=== PATIENT | female | born 1985 | race Caucasian/White ===

== ENCOUNTER 2019-06-02 05:13 | Inpatient (IN) | payer OTHER ==
[~2019-06-02] VITALS: Ht 162.6 cm; Wt 67.0 kg
[2019-06-02 06:04] VITALS: Ht 162.6 cm; Wt 67.0 kg
[2019-06-02 06:18] VITALS: BP 109/59; PULSE 64; RESP 18
[2019-06-02 07:18] VITALS: BP 112/65; PULSE 67; RESP 18
[2019-06-02] MEDS ORDERED: NACL 0.9% 3 ML SYG IV SCH (08:00)
[2019-06-02] MEDS ORDERED: ALBUTEROL/IPRATROPIUM (NEB) 3 ML AMP HHN PRN (08:00)
[2019-06-02] MEDS ORDERED: ACETAMINOPHEN 325 MG TAB PO PRN (08:00)
[2019-06-02] MEDS ORDERED: ONDANSETRON 4 MG INJ IV PRN (08:00)
[2019-06-02] MEDS ORDERED: HEPARIN 5,000 UNIT/1 ML VIAL SC SCH (09:00)
--- NOTE | 2019-06-02 10:52 | HP ---
Date/Time of Note Date/Time of Note DATE: 06/02/19 TIME: 10:42 Assessment/Plan VTE Prophylaxis SCD applied (from Nsg): No SCD contraindicated: other Pharmacological prophylaxis: NA/contraindicated Pharm contraindication: low risk/ambulating Lines/Catheters IV Catheter Type (from Nrs): Saline Lock Urinary Cath still in place: No Assessment/Plan Hospital Course SUBJECTIVE: Lying in bed, having breakfast. Feeling anxious and worried. Reports chest tightness. OBJECTIVE: Vital signs-see below PHYSICAL EXAM: Constitutional: Adequately built, having anxiety/panic attacks HEENT: Head atraumatic and normocephalic. Eyes: Extraocular muscles intact. Anicteric sclerae. Pupils equal bilaterally, reactive to light. NECK: Supple without lymph node. CHEST: Clear and good breath sounds equally. No wheezing. No rhonchi. HEART: S1, S2. Regular rate and rhythm. ABDOMEN: Soft/non tender with no rebound tenderness. Bowel sounds were present. EXTREMITIES: No cyanosis, clubbing or edema. NEUROLOGIC: Alert and oriented x3. No focal deficit. No sensory deficit. PSYCHOSOCIAL: anxious/panic/depressed ... INTEGUMENTARY: No open wounds. ASSESSMENT AND PLAN: 34 yo under bereavement w/sudden demise of her mom2 days ago,here tx from [facility] for dizziness followed by fainting/blackouts,inability to movex4 ext,difficulty speakingx 24hrs onset... -symptoms resolved completely -Rule out TIA versus somato- psychogenic symptoms -CTB/CTA (-) per osh ER report-requested actual imaging study reports -Brain MRI -ASA prophylaxis -PT eval Anxiety/panic attack w/possible acute depression -pt's mom 2days ago..Her father undergoing f/u post cabg...Pt is a single mom.. -psych consult -prn ativan -supportive care -SW consult Possible neuropathy -vit d/b12 levels -if no improvement, consider low dose gabapentin DVT prophylaxis: SCDs Rest of the management depend on clinical course. Approximately 60 m spent on this history and physical. Patient was seen in collaboration with Dr. Link. Result Diagram: 06/02/19 0800 06/02/19 0800 Results 24hrs Laboratory Tests Test 06/02/19 07:59 06/02/19 08:00 Creatine Kinase 71 Creatine Kinase Index 0.6 Creatinine Kinase MB (Mass) 0.43 Troponin I < 0.012 White Blood Count 3.9 L Red Blood Count 4.29 Hemoglobin 12.8 Hematocrit 38.1 Mean Corpuscular Volume 88.8 Mean Corpuscular Hemoglobin 29.8 Mean Corpuscular Hemoglobin Concent 33.6 Red Cell Distribution Width 13.5 Platelet Count 217 Mean Platelet Volume 10.6 H Immature Granulocytes % 0.000 L Neutrophils % 39.1 Lymphocytes % 47.3 Monocytes % 11.5 H Eosinophils % 1.8 Basophils % 0.3 Nucleated Red Blood Cells % 0.0 Immature Granulocytes # 0.000 Neutrophils # 1.5 L Lymphocytes # 1.9 Monocytes # 0.5 Eosinophils # 0.1 Basophils # 0.0 Nucleated Red Blood Cells # 0.0 Sodium Level 141 Potassium Level 4.0 Chloride Level 108 Carbon Dioxide Level 24 Anion Gap 9 Blood Urea Nitrogen 10 Creatinine 0.76 Est Glomerular Filtrat Rate mL/min > 60 Glucose Level 99 Hemoglobin A1c 5.0 Calcium Level 9.1 Magnesium Level 2.1 Total Bilirubin 0.3 Direct Bilirubin 0.00 Indirect Bilirubin 0.3 Aspartate Amino Transf (AST/SGOT) 17 Alanine Aminotransferase (ALT/SGPT) 17 Alkaline Phosphatase 51 Total Protein 7.2 Albumin 3.9 Globulin 3.30 H Albumin/Globulin Ratio 1.18 Triglycerides Level 59 Cholesterol Level 156 LDL Cholesterol, Calculated 110 HDL Cholesterol 34 Cholesterol/HDL Ratio 4.5 Thyroid Stimulating Hormone (TSH) 1.710 HPI/ROS Admit Date/Time Admit Date/Time Jun 02, 2019 at 05:45 Hx of Present Illness Is a 34-year-old female who is also a single mom with no significant past medical history, initially presented to [facility] with dizziness followed by fainting w/blackout, inability to move her extremities, facial numbness while she was dining with her friends yesterday evening. Unfortunately, patient is undergoing bereavementsecondary to her mother's sudden onset of demise which happened 2 days ago. Apparently, she has been undergoing tremendous stress and has been having frequent spells and blackouts with numbness lately. In the emergency room at outside hospital, patient was still noted with speech disturbances and bilateral upper and lower extremity weakness. Patient was evaluated by telemetry neurologist at outside facility and no TPA was recommended as her symptoms were more likely psychogenic in origin secondary to stress. Patient's brain CT and CTA head and neck was normal per reports obtained from outside hospital. Her labs also unremarkable at OSH. At my encounter with the patient, she appears extremely anxious and worried due to her mom's demise. She is also worried about arrangements. She is now able to move her extremities. Her speech is back to normal. She did not have any vision changes at this time. However, she continues to report chest tightness, bilateral numbness. No further blackouts. She denied fever, chills, diarrhea, nausea, vomiting, abdominal pain, palpitation, diaphoresis, speech difficulties, vision changes, or other constitutional symptoms. ROS A 12 point review of system was assessed and is negative other than what is mentioned in HPI. PMH/Family/Social Past Medical History See HPI Medications Current Medications IV Flush (NS 3 ml) 3 ml PER PROTOCOL IV ; Start 06/02/19 at 08:00 Ondansetron HCl (Zofran Inj) 4 mg Q6H PRN IV NAUSEA/VOMITING; Start 06/02/19 at 08:00 Acetaminophen (Tylenol Tab) 650 mg Q6H PRN PO .PAIN 1-3 OR TEMP; Start 06/02/19 at 08:00 Heparin Sodium (Porcine) (Heparin (5000 Units/1ml)) 5,000 unit Q12 SC Last administered on 06/02/19at 09:40; Admin Dose 5,000 UNIT; Start 06/02/19 at 09:00 Albuterol/ Ipratropium (Duoneb) 3 ml Q2H RESP THERAPY PRN HHN SHORTNESS OF BREATH; Start 06/02/19 at 08:00 Coded Allergies: No Known Allergy (Unverified , 06/02/19) Past Surgical History None Social History Denied history of alcohol, smoking or illicit drug use. Smoking Status: Never smoker Exam/Review of Systems Vital Signs Vitals Vital Signs Date Temp Pulse Resp B/P (MAP) Pulse Ox O2 O2 Flow FiO2 Time Delivery Rate 06/02/19 97.5 67 18 112/65 98 Room Air 07:18 (81) CHAU DAVIS NP Jun 02, 2019 10:52
[2019-06-02] MEDS ORDERED: SOD CHLORIDE 0.9% 500 ML IV ONE (11:00)
[2019-06-02] MEDS ORDERED: morphine 2 MG INJ IV PRN (11:00)
[2019-06-02] MEDS ORDERED: LORAZEPAM 0.5 MG TAB PO PRN (11:00)
[2019-06-02] MEDS ORDERED: NITROGLYCERIN (SL) 0.4 MG TAB SL PRN (11:00)
[2019-06-02] MEDS: ASPIRIN 81 MG TAB PO SCH (11:19)
[2019-06-02 12:51] VITALS: BP 129/66; PULSE 75; RESP 18
--- NOTE | 2019-06-02 15:47 | RADRPT ---
Echocardiogram Report Patient Name: CONY LORENZOPatient ID: [id number] : 1985 (34y 5m)Study Date: 06/02/2019 9:30:48 AM Gender: FAccession #: [id number] Tech: Zeke Rivera [facility] Location: [address] Ref.Physician: GOKUL FUENTES Height(Cm): BSA: Weight(Kg): Quality: AdequateOrder Physician: GOKUL FUNETES Account #: Procedures: Echocardiographic Report: Transthoracic echocardiogram with complete 2D, M-Mode, and doppler examination. Indications: Syncope. Measurements: 2D/M Mode Doppler Measurement Value Normal Range Measurement Value Normal Range LVIDd 2D 4.2 [ 3.8 - 5.2 ] cm AV Peak Holland 1.1 [ 100.0 - 170.0 ] cm/sec LVIDs 2D 2.8 [ 2.2 - 3.5 ] cm AV Peak PG 5.0 [ 2.0 - 9.0 ] mmHg LVPWd 2D 0.6 [ 0.6 - 0.9 ] cm LVOT Peak Holland 0.7 [ 70.0 - 110.0 ] cm/sec IVSd 2D 0.7 [ 0.6 - 0.9 ] cm LVOT Peak PG 2.0 [ 2.0 - 6.0 ] mmHg AoR Diam 2D 1.8 [ 2.3 - 3.1 ] cm MV E Peak Holland 0.6 [ 60.0 - 130.0 ] cm/sec EDV 2D 79.9 [ 46.0 - 106.0 ] ml MV A Peak Holland 0.5 [ 100.0 - 120.0 ] cm/sec ESV 2D 28.5 [ 14.0 - 42.0 ] ml MV E/A 1.4 [ 0.8 - 1.5 ] ratio EF 2D 64.3 [ 54.0 - 74.0 ] percent MV Decel Time 215 [ 104 - 258 ] msec LA Dimen 2D 2.7 [ 2.7 - 3.8 ] cm Lat E` Holland 0.1 [ 10.0 - 15.0 ] cm/sec Lateral E/E` 4.8 [ 1.0 - 2.0 ] ratio Med E` Holland 0.1 cm/sec MV E/A 1.4 [ 0.8 - 1.5 ] ratio RA Pressure 10.0 mmHg Findings: Left Ventricle: Normal left ventricular systolic function. Normal left ventricular cavity size. Normal left ventricular wall thickness. Ejection fraction is visually estimated at 65 %. Tissue Doppler/Mitral Doppler indices are within normal limits. Right Ventricle: Normal right ventricular size. Normal right ventricular systolic function. Left Atrium: The left atrium is normal in size. Right Atrium: The right atrium is normal in size. Mitral Valve: Mild mitral leaflet calcification. Mild mitral annular calcification. Trace mitral regurgitation. Aortic Valve: No significant aortic stenosis or insufficiency. Aortic cusps appear mildly calcified. Tricuspid Valve: Normal appearance of the tricuspid valve. Unable to obtain RVSP due to minimal presence of tricuspid regurgitation. Pericardium: Normal pericardium with no significant pericardial effusion. Aorta: Normal aortic root. IVC: Normal size and normal respiratory collapse consistent with normal right atrial pressure. Conclusions: Normal left ventricular systolic function. Normal left ventricular cavity size. Normal left ventricular wall thickness. Ejection fraction is visually estimated at 65 %. Tissue Doppler/Mitral Doppler indices are within normal limits. Mild mitral leaflet calcification. Mild mitral annular calcification. Trace mitral regurgitation. No significant aortic stenosis or insufficiency. Aortic cusps appear mildly calcified. Normal appearance of the tricuspid valve. Unable to obtain RVSP due to minimal presence of tricuspid regurgitation. Electronically Signed By: Donald Haro 2019-06-02 15:46:07 PDT
[2019-06-02 16:16] VITALS: BP 131/73; PULSE 73; RESP 18
--- NOTE | 2019-06-02 17:46 | PSY ---
Date/Time of Note Date/Time of Note DATE: 06/02/19 TIME: 20:21 Psychiatric Subjective Eval Consent Pt consented to telemedicine: Yes Subjective Evaluation Patient location: inpatient History of present illness 34 yo female with ho depression. Inpatient medicine after pt fainted and had various now resoled neuro deficits such as slurred speech, numbness and various paralysis. All sxs have resolved. Pt received medical workup with no clear cause found. this was per nurse and notes. Psych was consulted. Pt reports hx as above. Reports she felt "weak." Reports she could not move her body or speak and she does not know why. Reports she was just overwhelmed with being too weak and felt that her face was numb. Pt reports this has happened to her before. Reports she does not know why this happens. Reports she sometimes loses her sight when this happens. Denies psychosis or drug use. 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 Pt reports that she custody of her daughter in 2013. Past Psych Hx: denies psych hx PMhx: denies nkda Meds: see medical note MS: casually groomed, cooperative, nearly euthymic, though did tear when talking about mother normal speech, organized, no delusions no avh denies si/hi, Imp: 34 yo female with numerous neurological issues, all resolved, and s/p severe stressor First recommend full medical workup to rule medical condition It is possible that some component of pt's presentation may be related to her severe stressors. Right now, pt does not appear to have a major mood episode or psychosis. Would recommend hydroxyzine 25-50mg tid prn anxiety and referral to outpatient psychiatrist for follow up therapy and psychiatry Allergies: Coded Allergies: No Known Allergy (Unverified , 06/02/19) Psychiatric Objective Eval Mental Status Examination: Laboratory Results Laboratory Tests Test 06/02/19 07:56 06/02/19 07:59 06/02/19 08:00 06/02/19 16:29 Vitamin B12 Level 521 pg/ml Vitamin D 29.8 ng/ml 1,25-Dihydroxy Creatine Kinase 71 IU/L 62 IU/L Creatine Kinase 0.6 0.5 Index Creatinine Kinase 0.43 ng/ml 0.31 ng/ml MB (Mass) Troponin I < 0.012 ng/ml < 0.012 ng/ml White Blood Count 3.9 10^3/ul Red Blood Count 4.29 10^6/ul Hemoglobin 12.8 g/dl Hematocrit 38.1 % Mean Corpuscular 88.8 fl Volume Mean Corpuscular 29.8 pg Hemoglobin Mean Corpuscular 33.6 g/dl Hemoglobin Concent Red Cell 13.5 % Distribution Width Platelet Count 217 10^3/UL Mean Platelet 10.6 fl Volume Immature 0.000 % Granulocytes % Neutrophils % 39.1 % Lymphocytes % 47.3 % Monocytes % 11.5 % Eosinophils % 1.8 % Basophils % 0.3 % Nucleated Red 0.0 /100WBC Blood Cells % Immature 0.000 10^3/ul Granulocytes # Neutrophils # 1.5 10^3/ul Lymphocytes # 1.9 10^3/ul Monocytes # 0.5 10^3/ul Eosinophils # 0.1 10^3/ul Basophils # 0.0 10^3/ul Nucleated Red 0.0 10^3/ul Blood Cells # Sodium Level 141 mmol/L Potassium Level 4.0 mmol/L Chloride Level 108 mmol/L Carbon Dioxide 24 mmol/L Level Anion Gap 9 Blood Urea 10 mg/dl Nitrogen Creatinine 0.76 mg/dl Est Glomerular > 60 mL/min Filtrat Rate mL/min Glucose Level 99 mg/dl Hemoglobin A1c 5.0 % Calcium Level 9.1 mg/dl Magnesium Level 2.1 mg/dl Total Bilirubin 0.3 mg/dl Direct Bilirubin 0.00 mg/dl Indirect Bilirubin 0.3 mg/dl Aspartate Amino 17 IU/L Transf (AST/SGOT) Alanine 17 IU/L Aminotransferase ( ALT/SGPT) Alkaline 51 IU/L Phosphatase Total Protein 7.2 g/dl Albumin 3.9 g/dl Globulin 3.30 g/dl Albumin/Globulin 1.18 Ratio Triglycerides 59 mg/dl Level Cholesterol Level 156 mg/dl LDL Cholesterol, 110 mg/dl Calculated HDL Cholesterol 34 mg/dl Cholesterol/HDL 4.5 RATIO Ratio Thyroid 1.710 MIU/L Stimulating Hormone (TSH) Assessment and Plan Recommendation/Plan Multiple antipsychotics: No Discharge Disposition: Community Legal Status: Voluntary KATHIETUCKER MCFARLANE Jun 02, 2019 17:46
[2019-06-02 20:13] VITALS: BP 107/59; PULSE 67; RESP 18
[2019-06-03 00:31] VITALS: BP 116/61; PULSE 61; RESP 16
[2019-06-03 03:50] VITALS: BP 103/56; PULSE 60; RESP 18
[2019-06-03 07:34] VITALS: BP 110/59; PULSE 60; RESP 22
[2019-06-03] MEDS: ASPIRIN 81 MG TAB PO SCH (08:13)
--- NOTE | 2019-06-03 10:15 | PDOCDIS ---
Discharge Instructions CONDITION [id number] Patient Condition: [id number] Stable HOME CARE INSTRUCTIONS: [id number] Diet Instructions: [id number] Regular FOLLOW UP/APPOINTMENTS Follow-up Plan Follow up with primary care physician in 1 week. Recommend outpatient psychiatrist follow-up. CHAU DAVIS NP Jun 03, 2019 10:15
[2019-06-03] MEDS ORDERED: HYDR-842 PO (10:17)
--- NOTE | 2019-06-03 10:21 | DS ---
Date/Time of Note Date/Time of Note DATE: 06/03/19 TIME: 10:19 Discharge Summary Admission/Discharge Info Admit Date/Time Jun 02, 2019 at 05:45 Discharge Date/Time Discharge Diagnosis Anxiety disorders mild vit D deficiency Patient Condition: Stable Procedures 06/02/2019: Brain MRI: IMPRESSION: 1. No acute intracranial hemorrhage, infarction or mass. 06/02/2019: 2D echocardiogram Conclusions: Normal left ventricular systolic function. Normal left ventricular cavity size. Normal left ventricular wall thickness. Ejection fraction is visually estimated at 65 %. Tissue Doppler/Mitral Doppler indices are within normal limits. Mild mitral leaflet calcification. Mild mitral annular calcification. Trace mitral regurgitation. No significant aortic stenosis or insufficiency. Aortic cusps appear mildly calcified. Normal appearance of the tricuspid valve. Unable to obtain RVSP due to minimal presence of tricuspid regurgitation. Electronically Signed By: Donald Haro 2019-06-02 15:46:07 PDT Hx of Present Illness Is a 34-year-old female who is also a single mom with no significant past medical history, initially presented to [facility] with dizziness followed by fainting w/blackout, inability to move her extremities, facial numbness while she was dining with her friends yesterday evening. Unfortunately , patient is undergoing bereavementsecondary to her mother's sudden onset of demise which happened 2 days ago. Apparently, she has been undergoing tremendous stress and has been having frequent spells and blackouts with numbness lately. In the emergency room at outside hospital, patient was still noted with speech disturbances and bilateral upper and lower extremity weakness. Patient was evaluated by telemetry neurologist at outside facility and no TPA was recommended as her symptoms were more likely psychogenic in origin secondary to stress. Patient's brain CT and CTA head and neck was normal per reports obtained from outside hospital. Her labs also unremarkable at OSH. At my encounter with the patient, she appears extremely anxious and worried due to her mom's demise. She is also worried about arrangements. She is now able to move her extremities. Her speech is back to normal. She did not have any vision changes at this time. However, she continues to report chest tightness, bilateral numbness. No further blackouts. She denied fever, chills, diarrhea, nausea, vomiting, abdominal pain, palpitation, diaphoresis, speech difficulties, vision changes, or other constitutional symptoms. Hospital Course 34 yo under bereavement w/sudden demise of her mom2 days ago,here tx from osh for dizziness followed by fainting/blackouts,inability to movex4 ext,difficulty speakingx 24hrs onset.. Patient symptoms have completely resolved in the emergency room. Her CT brain and CTA studies were unremarkable. Patient had telemetry neuro evaluation at the outside facility, deemed psychogenic causes of symptoms secondary to sudden demise of patient's mother and life stressors. As such, tpa was not administered. Patient had a brain MRI which was unremarkable. She was evaluated by physical therapist. Patient did not have any further deficit. Her speech was clear. She had full strength on all 4 extremities. Patient was seen by telemetry psychiatrist who recommended hydroxyzine for anxiety. At this time, it is more likely that patient symptoms are more psychosomatic with current extreme stressors. Patient was counseled. She was also evaluated by social science instructor. Patient is requesting to be discharged so she can arrange service for her mother who 2 days ago. Next Patient's labs and vital signs stable. She is stable for outpatient follow-up. She is recommended to have outpatient psychiatrist follow-up. Approximately 60-minute was spent on coordinating the discharge on this patient. Patient was seen in collaboration with Dr. Link. Follow-up Plan Follow up with primary care physician in 1 week. Recommend outpatient psychiatrist follow-up. Primary Care Provider [facility] Pending Labs Laboratory Tests Test 06/02/19 16:29 06/03/19 06:41 Creatine Kinase 62 IU/L (23-200) Creatine Kinase Index 0.5 Creatinine Kinase MB 0.31 ng/ml (0.0-2.4) (Mass) Troponin I < 0.012 ng/ml (0.000-0.120) White Blood Count 3.7 10^3/ul (4.8-10.8) Red Blood Count 4.44 10^6/ul (4.20-5.40) Hemoglobin 13.1 g/dl (12.0-16.0) Hematocrit 39.6 % (37.0-47.0) Mean Corpuscular Volume 89.2 fl (82.0-101.0) Mean Corpuscular 29.5 pg (29.0-33.0) Hemoglobin Mean Corpuscular 33.1 g/dl (32.0-37.0) Hemoglobin Concent Red Cell Distribution 13.3 % (11.5-14.5) Width Platelet Count 199 10^3/UL (140-415) Mean Platelet Volume 10.3 fl (7.4-10.4) Immature Granulocytes % 0.000 % (0.001-0.429) Neutrophils % 28.0 % (39.0-77.0) Lymphocytes % 57.7 % (15.0-51.0) Monocytes % 12.4 % (0.0-11.0) Eosinophils % 1.6 % (0.0-7.0) Basophils % 0.3 % (0.0-2.0) Nucleated Red Blood Cells 0.0 /100WBC (0.0-0.0) % Immature Granulocytes # 0.000 10^3/ul (0.0-0.031) Neutrophils # 1.0 10^3/ul (1.6-7.5) Lymphocytes # 2.1 10^3/ul (0.8-2.9) Monocytes # 0.5 10^3/ul (0.3-0.9) Eosinophils # 0.1 10^3/ul (0.0-0.5) Basophils # 0.0 10^3/ul (0.0-0.1) Nucleated Red Blood Cells 0.0 10^3/ul (0.0-0.0) # Sodium Level 141 mmol/L (135-144) Potassium Level 4.0 mmol/L (3.5-5.1) Chloride Level 108 mmol/L (97-110) Carbon Dioxide Level 26 mmol/L (21-31) Anion Gap 7 (5-13) Blood Urea Nitrogen 14 mg/dl (7-20) Creatinine 0.86 mg/dl (0.44-1.00) Est Glomerular Filtrat > 60 mL/min (>60) Rate mL/min Glucose Level 96 mg/dl (70-220) Calcium Level 9.1 mg/dl (8.4-10.2) Phosphorus Level 4.2 mg/dl (2.5-4.9) Magnesium Level 2.1 mg/dl (1.7-2.5) CHAU DAVIS V. [employer]ED[employer] Jun 03, 2019 10:21
[2019-06-03] MEDS ORDERED: CHOL100062 PO (10:23)
[2019-06-03] MEDS ORDERED: hydrOXYzine HCL 25 MG TAB PO PRN (10:30)
[2019-06-03 11:34] VITALS: BP 126/78; PULSE 72; RESP 22
== END 2019-06-03 13:25 | disposition home or self-care (01) | DRG 880 ==
LOC: TEL 05:45
PROVIDERS: ADMIT Internal Medicine; ATTEND Internal Medicine
DX: F41.9 Anxiety disorder, unspecified (principal); Z63.4 Disappearance and death of family member; E55.9 Vitamin D deficiency, unspecified
CPT/HCPCS: 70551; 80048; 80053; 80061; 82550; 82553; 82607; 82652; 83036; 83735; 84100; 84443; 84484; 85025; 93306; 97161; J1644; J7040